=== PATIENT | female | born 1950 | race Caucasian/White ===

== ENCOUNTER 2017-08-27 07:43 | Outpatient (CLI) | payer MEDICARE, BC | END 2017-08-27 07:44 | disposition home or self-care (01) | LOC: BICMAMMO 07:43 | PROVIDERS: ATTEND Internal Medicine | DX: N64.4 Mastodynia (principal) | CPT/HCPCS: G0206; G0279 ==

== ENCOUNTER 2018-01-13 11:00 | Outpatient (CLI) | payer MEDICARE, BC | END 2018-01-13 11:01 | disposition home or self-care (01) | LOC: BICMAMMO 11:00 | PROVIDERS: ATTEND Internal Medicine | DX: Z12.31 Encounter for screening mammogram for malignant neoplasm of breast (principal); Z13.820 Encounter for screening for osteoporosis; Z80.3 Family history of malignant neoplasm of breast | CPT/HCPCS: 77063; 77067; 77080 ==

== ENCOUNTER 2018-09-14 14:52 | Outpatient (CLI) | payer MEDICARE, BC ==
--- NOTE | 2018-09-14 16:06 | RAD ---
TWO VIEW CHEST: Indication: Cough. FINDINGS: Lung rubio appear clear of infiltrate. Heart and mediastinum unremarkable. Vasculature is normal. Os seous structures unremarkable. IMPRESSION: No acute process identified. POS: [facility]
== END 2018-09-14 14:53 | disposition home or self-care (01) ==
LOC: BICRAD 14:52
PROVIDERS: ATTEND Internal Medicine
DX: R05 Cough (principal)
CPT/HCPCS: 71046

== ENCOUNTER 2019-01-27 10:41 | Outpatient (CLI) | payer MEDICARE, BC ==
--- NOTE | 2019-01-27 11:16 | MMO ---
Bilateral MAMMO Bilat Screen [facility]. CLINICAL HISTORY: Patient is 68 years old and is seen for screening. The patient has a history of melanoma at age 59. VIEWS: The views performed were: bilateral craniocaudal with tomosynthesis and bilateral mediolateral oblique with tomosynthesis. FILMS COMPARED: The present examination has been compared to prior imaging studies performed at [facility] on 11/06/2015, 11/12/2016, 08/27/2017 and 01/13/2018. MAMMOGRAM FINDINGS: The breasts are almost entirely fat. There are stable benign appearing calcifications seen in both breasts. There are no suspicious masses, suspicious calcifications, or new areas of architectural distortion. IMPRESSION: THERE IS NO MAMMOGRAPHIC EVIDENCE OF MALIGNANCY. A ROUTINE FOLLOW-UP MAMMOGRAM IN 1 YEAR IS RECOMMENDED. THE RESULTS OF THIS EXAM WERE SENT TO THE PATIENT. ACR BI-RADS Category 2 - Benign finding MAMMOGRAPHY NOTE: 1. A negative mammogram report should not delay a biopsy if a dominant of clinically suspicious mass is present. 2. Approximately 10% to 15% of breast cancers are not detected by mammography. 3. Adenosis and dense breasts may obscure an underlying neoplasm.
== END 2019-01-27 10:42 | disposition home or self-care (01) ==
LOC: BICMAMMO 10:41
PROVIDERS: ATTEND Nurse Practitioner
DX: Z12.31 Encounter for screening mammogram for malignant neoplasm of breast (principal); Z85.820 Personal history of malignant melanoma of skin
CPT/HCPCS: 77063; 77067

== ENCOUNTER 2019-08-26 10:24 | Outpatient (CLI) | payer MEDICARE, BC ==
--- NOTE | 2019-08-26 11:08 | ULT ---
EXAM: Left lower extremity venous Doppler US HISTORY: left lower extremity edema and pain FINDINGS: Grayscale, color-flow, Doppler evaluation, spectral analysis of the left lower extremity venous struc tures is performed with 2-D imaging. The left common femoral, superficial femoral, popliteal, posterior tibial, proximal greater saphenous and profunda femoral veins are imaged. There is normal luminal compressibility, flow, and augmentation the visualized deep venous structures of the left lower extremity. IMPRESSION: No evidence of a deep vein thrombosis in the left lower extremity.
== END 2019-08-26 10:25 | disposition home or self-care (01) ==
LOC: SCSULT 10:24
PROVIDERS: ATTEND Nurse Practitioner Family
DX: M79.605 Pain in left leg (principal)

== ENCOUNTER 2020-02-17 13:52 | Outpatient (CLI) | payer MEDICARE, BC ==
--- NOTE | 2020-02-17 16:28 | MMO ---
Bilateral MAMMO Bilat Screen [facility]. CLINICAL HISTORY: Patient is 69 years old and is seen for screening. The patient has the following family history of breast cancer: maternal aunt, malignant (generic). The patient has a history of melanoma at age 59. VIEWS: The views performed were: bilateral craniocaudal with tomosynthesis and bilateral mediolateral oblique with tomosynthesis. FILMS COMPARED: The present examination has been compared to prior imaging studies performed at [facility] on 11/12/2016, 08/27/2017, 01/13/2018 and 01/27/2019. This study has been interpreted with the assistance of computer-aided detection. MAMMOGRAM FINDINGS: The breasts are almost entirely fat. There is a new round mass measuring 6 millimeters seen in the anterior upper-outer region of the right breast. In the left breast, there are no suspicious masses, calcifications or areas of architectural distortion. IMPRESSION: NEW MASS IN THE RIGHT BREAST REQUIRES ADDITIONAL EVALUATION. ADDITIONAL IMAGING. THE RESULTS OF THIS EXAM WERE SENT TO THE PATIENT. ACR BI-RADS Category 0 - Incomplete: Need additional imaging evaluation. [facility] will notify the patient of the need for additional imaging services. MAMMOGRAPHY NOTE: 1. A negative mammogram report should not delay a biopsy if a dominant of clinically suspicious mass is present. 2. Approximately 10% to 15% of breast cancers are not detected by mammography. 3. Adenosis and dense breasts may obscure an underlying neoplasm. Reported by: MARIE HAWKINS MD Electonically Signed: [id number]
== END 2020-02-17 13:53 | disposition home or self-care (01) ==
LOC: BICMAMMO 13:52
PROVIDERS: ATTEND Internal Medicine
DX: Z12.31 Encounter for screening mammogram for malignant neoplasm of breast (principal); N63.10 Unspecified lump in the right breast, unspecified quadrant; Z85.820 Personal history of malignant melanoma of skin; Z80.3 Family history of malignant neoplasm of breast
CPT/HCPCS: 77063; 77067

== ENCOUNTER 2020-02-22 13:20 | Outpatient (CLI) | payer MEDICARE, BC ==
--- NOTE | 2020-02-22 14:04 | MMO ---
Right Breast MAMMO Unilat Diag [facility]. CLINICAL HISTORY: Patient is 69 years old and is seen for diagnostic exam. The patient has the following family history of breast cancer: maternal aunt, malignant (generic). The patient has a history of melanoma at age 59. VIEWS: The views performed were: right craniocaudal spot compression with tomosynthesis; right mediolateral oblique spot compression with tomosynthesis; and right mediolateral with tomosynthesis. FILMS COMPARED: The present examination has been compared to prior imaging studies performed at [facility] on 01/13/2018, 01/27/2019, 02/17/2020 and 02/22/2020. This study has been interpreted with the assistance of computer-aided detection. MAMMOGRAM FINDINGS: The breast is almost entirely fat. There is a high density, round mass measuring 5 millimeters seen in the anterior region of the right breast at 10 o'clock. This is new with respect to prior mammograms. Sonography demonstrates a corresponding hypoechoic mass. IMPRESSION: MASS IN THE RIGHT BREAST IS SUSPICIOUS. BIOPSY IS RECOMMENDED. RESULTS AND RECOMMENDATIONS DISCUSSED WITH THE PATIENT AND QUESTIONS ANSWERED. THE RESULTS OF THIS EXAM WERE SENT TO THE PATIENT. ACR BI-RADS Category 4 - Suspicious abnormality - biopsy should be considered MAMMOGRAPHY NOTE: 1. A negative mammogram report should not delay a biopsy if a dominant of clinically suspicious mass is present. 2. Approximately 10% to 15% of breast cancers are not detected by mammography. 3. Adenosis and dense breasts may obscure an underlying neoplasm. Reported by: MELVI SEVERINO MD Electonically Signed: [id number]
--- NOTE | 2020-02-22 14:09 | ULT ---
EXAM: US Breast Limited Rt PROVIDED CLINICAL HISTORY: Right breast mass COMPARISON: Concurrently performed diagnostic mammogram FINDINGS: Limited sonographic interrogation of the right breast was performed in the region of mammographic con cern. There is a 4-5 mm circumscribed hypoechoic mass with central increased echogenicity present in this region. IMPRESSION: Given that this is a mammographically new mass, and does not demonstrate definitely benign features, biopsy is recommended. This would be amenable to ultrasound-guided biopsy. BI-RADS 4 -- suspicious abnormality, biopsy recommended
== END 2020-02-22 13:21 | disposition home or self-care (01) ==
LOC: BICMAMMO 13:20
PROVIDERS: ATTEND Internal Medicine
DX: N63.10 Unspecified lump in the right breast, unspecified quadrant (principal)
CPT/HCPCS: 76642; 77065; G0279

== ENCOUNTER → 2020-02-23 | Day surgery (SDC) | payer MEDICARE, BC ==
--- NOTE | 2020-02-23 08:41 | MMO ---
FILMS COMPARED: The present examination has been compared to prior imaging studies performed at [facility] on 01/27/2019, 02/17/2020 and 02/22/2020. MAMMOGRAM FINDINGS: Bx clip is adjacent to the right upper outer breast nodule. IMPRESSION: FINDING IN THE RIGHT BREAST IS CONFIRMED UTILIZING POST PROCEDURE MAMMOGRAM. Reported by: TRISTA PETERSON MD Electonically Signed: [id number]
--- NOTE | 2020-02-23 09:11 | ULT ---
Exam: Right breast biopsy with ultrasound guidance HISTORY: Right breast mass with central calcification COMPARISON: 02/22/2020 FINDINGS: Successful right breast biopsy with ultrasound guidance. A total of 5 14-gauge core biopsy samples were obtained. Samples were placed directly in formalin. Patient tolerated the procedure well. No immediate or postprocedure complications TECHNIQUE: Consent obtained to perform a right breast biopsy with ultrasound guidance. Right breast w as prepped and draped in a sterile fashion. 1% lidocaine, buffered with sodium bicarbonate was used for local anesthesia. Under ultrasound guidance, a 14-gauge biopsy needle was advanced adjacent to th e lesion. A total of 5 biopsies were obtained. Tissue was placed directly in formalin. Postbiopsy clip was placed. Patient fell the procedure well. No immediate or postprocedure complications Postprocedure mammogram was performed. IMPRESSION: Successful right breast biopsy with ultrasound guidance. Final pathologic diagnosis us pe nding.
== END ==
LOC: BICULT 07:33
PROVIDERS: ATTEND Internal Medicine
PROC: 0H9T3ZX Drainage of Right Breast, Percutaneous Approach, Diagnostic (ICD-10-PCS; principal; 2020-02-23)
DX: N61.0 Mastitis without abscess (principal); N60.31 Fibrosclerosis of right breast; R92.1 Mammographic calcification found on diagnostic imaging of breast
CPT/HCPCS: 19083; 88305; 88341; 88342

== ENCOUNTER 2020-06-13 07:33 | Outpatient (CLI) | payer MEDICARE, BC, OTHER ==
[2020-06-13 18:00] LABS: #Eosinphils 0.2 thou/uL (0.0-0.7); #Lymphocytes 2.4 thou/uL (1.20-3.40); #Monocytes 0.6 thou/uL (0.11-0.59); %Basophils 0.7 % (0.0-1.0); %Eosinophils 3.4 % (0.0-10.0); %Lymphocytes 33.1 % (21.0-51.0); %Monocytes 7.8 % (0.0-10.0); %Neutrophils 55.1 % (42.0-75.0); Hemoglobin 13.1 g/dL (12.0-16.0); Mean Corpuscular Hemoglobin 29.1 pg (27.0-31.0); Mean Corpuscular Volume 88.1 fL (78.0-98.0); Mean Platelet Volume 9.5 fL (7.4-10.4); Platelet Count 260 thou/uL (130-400); Red Blood Cell (RBC) Count 4.51 mill/uL (4.20-5.40); White Blood Cell (WBC) Count 7.2 thou/uL (4.8-10.8)
[2020-06-13 18:52] LABS: Anion Gap 14 mmol/L (10-20); BUN (Urea Nitrogen) 7 mg/dL (9.8-20.1); Calc. Creatinine Clearance 0 mL/min (70-130); Carbon Dioxide 25 mmol/L (23-31); Chloride 105 mmol/L (98-107); Estimated GFR-MDRD 65; Glucose 114 mg/dL (80-115); Potassium 4.3 mmol/L (3.5-5.1); Sodium 140 mmol/L (136-145)
[2020-06-14 11:55] LABS: SARS-CoV-2 MS2 Positive; SARS-CoV-2 N Gene Negative; SARS-CoV-2 S Gene Negative; SARS-CoV-2 by NAA Not Detected (NotDetected); SARS-CoV-2 orf1ab Negative
== END 2020-06-13 07:34 | disposition home or self-care (01) ==
LOC: LABBT 07:33
PROVIDERS: ATTEND Surgery
DX: Z01.812 Encounter for preprocedural laboratory examination (principal); Z20.828 Contact with and (suspected) exposure to other viral communicable diseases; N63.10 Unspecified lump in the right breast, unspecified quadrant
CPT/HCPCS: 80048; 85025; U0003; 87635

== ENCOUNTER 2020-06-16 05:31 | Day surgery (SDC) | payer MEDICARE, BC ==
[2020-06-14 13:28] VITALS: BMI 31.6
[2020-06-16] MEDS ORDERED: Bupivacaine/Epinephrine 0.25% 30 ML VIAL ONE (06:50)
[2020-06-16] MEDS ORDERED: Fentanyl 100 MCG/2 ML VIAL ONE (06:55)
[2020-06-16] MEDS ORDERED: Midazolam HCl 2 mg/2 ml Vial ONE (07:28)
[2020-06-16] MEDS ORDERED: PHENYLEPHRINE-NS 100 MCG/ML 10 ML SYRINGE ONE (10:32)
[2020-06-16] MEDS ORDERED: EPHEDRINE 25 MG/5 ML SYRINGE ONE (10:32)
[2020-06-16] MEDS ORDERED: PROPOFOL 200 MG/20 ML VIAL ONE (10:32)
[2020-06-16] MEDS ORDERED: Ondansetron PF 4 MG/2 ML Vial ONE (10:32)
[2020-06-16] MEDS ORDERED: Lidocaine 1% PF 5 ML VIAL ONE (10:32)
[2020-06-16] MEDS ORDERED: Dexamethasone 20 MG/5 ML VIAL ONE (10:32)
--- NOTE | 2020-06-16 16:52 | PDOC.OP ---
Operative Note - Operative Note Operative Note: PROCEDURE: Right breast excisional biopsy SURGEON: Wyatt Garvey M.D. DATE: 06/17/2020 PREOPERATIVE DIAGNOSIS: BI-RADS 4 breast mass with discordant pathology on core needle biopsy POSTOPERATIVE DIAGNOSIS: BI-RADS 4 breast mass with discordant pathology on core needle biopsy HISTORY: Patient with right breast mass discovered on routine screening mammography. She underwent core needle biopsy but this was technically difficult as the mass was mobile and had a central calcification making it difficult to biopsy. No malignancy was seen on pathology but the mass was no smaller following core biopsy and it was felt that the mass itself has not been adequately sampled. Pathology report suggested that the periphery of the lesion had been biopsied. Excisional biopsy was recommended. PROCEDURE IN DETAIL: The mass in the right upper outer quadrant was palpated and the margins of the mass were marked on the overlying skin and an elliptical incision made including the skin over the mass since it was felt to be fairly superficial. Flaps were raised in all directions and dissection was then carried down circumferentially to below the level of the mass. The tissues deep to the mass were then transected and the specimen was removed and marked for orientation with a long lateral and short superior suture. It was sent for specimen mammogram which showed presence of the mass and clip within the specimen. The wound was irrigated and hemostasis obtained using Bovie electrocautery. Additional local anesthesia was infused circumferentially for postoperative pain control. The subcutaneous tissues were reapproximated with a running 3-0 Monocryl suture and additional local anesthesia infused into the biopsy cavity. The skin was then closed with a running 4-0 subcuticular Monocryl suture. Dermabond dressings were placed to both incisions and once this was dry, fluffs compression dressings were placed and secured to the skin with tape. The patient was extubated and taken to the recovery room in good condition. Estimated blood loss was minimal. There were no complications. Specimen is right breast mass.
--- NOTE | 2020-06-18 08:53 | EKG ---
Test Reason : PREOP Blood Pressure : / mmHG Vent. Rate : 074 BPM Atrial Rate : 074 BPM P-R Int : 164 ms QRS Dur : 086 ms QT Int : 436 ms P-R-T Axes : 052 038 050 degrees QTc Int : 483 ms Normal sinus rhythm with sinus arrhythmia Normal ECG No previous ECGs available Confirmed by DR. Davonte VILLEGAS ([id number]) on 06/18/2020 8:53:00 AM Referred By: VIDYA Confirmed By:DR. Davonte VILLEGAS
== END 2020-06-16 10:23 | disposition home or self-care (01) ==
LOC: SDC 05:31
PROVIDERS: ATTEND Surgery
PROC: 0HBT0ZZ Excision of Right Breast, Open Approach (ICD-10-PCS; principal; 2020-06-16)
DX: N60.91 Unspecified benign mammary dysplasia of right breast (principal); E11.9 Type 2 diabetes mellitus without complications; F41.9 Anxiety disorder, unspecified; J30.2 Other seasonal allergic rhinitis; Z79.84 Long term (current) use of oral hypoglycemic drugs; Z79.899 Other long term (current) drug therapy; Z88.1 Allergy status to other antibiotic agents; Z88.8 Allergy status to other drugs, medicaments and biological substances
CPT/HCPCS: 76098; 88307; 88341; 88342; 93005; 93010; J0690; J1100; J2250; J2405; J2704; J3010

== ENCOUNTER 2021-02-23 11:50 | Outpatient (CLI) | payer MEDICARE, BC | END 2021-02-23 11:51 | disposition home or self-care (01) | LOC: BICMAMMO 11:50 | PROVIDERS: ATTEND Internal Medicine | DX: Z12.31 Encounter for screening mammogram for malignant neoplasm of breast (principal); Z80.3 Family history of malignant neoplasm of breast; Z85.820 Personal history of malignant melanoma of skin | CPT/HCPCS: 77063; 77067 ==

== ENCOUNTER 2022-03-07 10:35 | Outpatient (CLI) | payer MEDICARE, BC | END 2022-03-07 10:36 | disposition home or self-care (01) | LOC: BICMAMMO 10:35 | PROVIDERS: ATTEND Internal Medicine | DX: Z12.31 Encounter for screening mammogram for malignant neoplasm of breast (principal); Z91.89 Other specified personal risk factors, not elsewhere classified; Z85.820 Personal history of malignant melanoma of skin; Z80.3 Family history of malignant neoplasm of breast | CPT/HCPCS: 77063; 77067 ==

== ENCOUNTER 2023-08-22 12:49 | Outpatient (CLI) | payer MEDICARE, BC | END 2023-08-22 12:50 | disposition home or self-care (01) | LOC: BICMAMMO 12:49 | PROVIDERS: ATTEND Internal Medicine | DX: Z12.31 Encounter for screening mammogram for malignant neoplasm of breast (principal); Z80.3 Family history of malignant neoplasm of breast; Z91.89 Other specified personal risk factors, not elsewhere classified; Z85.820 Personal history of malignant melanoma of skin | CPT/HCPCS: 77063; 77067 ==

== ENCOUNTER 2024-08-23 09:44 | Outpatient (CLI) | payer MEDICARE | END 2024-08-23 09:45 | disposition home or self-care (01) | LOC: BICMAMMO 09:44 | PROVIDERS: ATTEND Internal Medicine | DX: Z12.31 Encounter for screening mammogram for malignant neoplasm of breast (principal); N63.11 Unspecified lump in the right breast, upper outer quadrant; Z80.3 Family history of malignant neoplasm of breast; Z91.89 Other specified personal risk factors, not elsewhere classified; Z85.820 Personal history of malignant melanoma of skin | CPT/HCPCS: 77063; 77067 ==

== ENCOUNTER 2024-09-02 10:04 | Outpatient (CLI) | payer MEDICARE | END 2024-09-02 10:05 | disposition home or self-care (01) | LOC: BICMAMMO 10:04 | PROVIDERS: ATTEND Internal Medicine | DX: N63.11 Unspecified lump in the right breast, upper outer quadrant (principal) | CPT/HCPCS: 76642; 77065; G0279 ==